=== PATIENT | female | born 1985 | race Caucasian/White ===

== ENCOUNTER 2019-04-09 18:22 | Emergency (ER) | payer MEDICAID ==
[~2019-04-09] VITALS: Ht 165.1 cm; Wt 67.3 kg
[~2019-04-09 18:22] MED LIST: ACET500C5 PO
[2019-04-09 18:44] VITALS: Ht 165.1 cm; Wt 67.3 kg
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
[2019-04-09] MEDS ORDERED: IBUP800T48 PO (20:51)
[2019-04-09] MEDS ORDERED: TIZA4TAB PO (20:51)
[2019-04-09] MEDS ORDERED: METHOCARBAMOL 500 MG TAB PO ONE (21:00)
[2019-04-09] MEDS ORDERED: IBUPROFEN 800 MG TAB PO ONE (21:00)
[2019-04-09 22:53] VITALS: BP 132/76; PULSE 72; RESP 16
== END 2019-04-09 22:53 | disposition home or self-care (01) ==
LOC: FTE 18:22
DX: S40.012A Contusion of left shoulder, initial encounter (principal); V43.52XA Car driver injured in collision with other type car in traffic accident, initial encounter
CPT/HCPCS: 81025; Z7502; Z7610; 99283